=== PATIENT | male | born 2000 | race Two or more races ===

== ENCOUNTER 2022-11-05 21:21 | Emergency (ER) | payer MEDICAID, OTHER ==
[~2022-11-05] VITALS: Ht 180.3 cm; Wt 136.4 kg
[2022-11-06] MEDS ORDERED: IBUP600T28 PO (00:19)
[2022-11-06] MEDS ORDERED: CYCL-839 PO (00:19)
[2022-11-06 01:00] VITALS: BP 138/82
== END 2022-11-06 01:14 | disposition home or self-care (01) ==
LOC: EDBD 21:21 → ER 21:26
DX: S13.9XXA Sprain of joints and ligaments of unspecified parts of neck, initial encounter (principal); S20.219A Contusion of unspecified front wall of thorax, initial encounter; S09.8XXA Other specified injuries of head, initial encounter; K76.0 Fatty (change of) liver, not elsewhere classified; V43.52XA Car driver injured in collision with other type car in traffic accident, initial encounter; Y93.89 Activity, other specified; Y92.89 Other specified places as the place of occurrence of the external cause; Y99.8 Other external cause status
CPT/HCPCS: 70450; 71045; 71250; 72125; 74176; 93005